=== PATIENT | male | born 1995 | race Caucasian/White ===

== ENCOUNTER 2016-10-12 04:01 | Emergency (ER) | payer OTHER ==
[~2016-10-12] VITALS: Ht 167.6 cm; Wt 54.4 kg
[2016-10-12 04:05] VITALS: BP 125/76; PULSE 84; RESP 15; TEMP 98.8; O2SAT 98
[2016-10-12 05:00] VITALS: BP 120/76; PULSE 82; RESP 16; TEMP 98.8; O2SAT 98
--- NOTE | 2016-10-12 05:00 | NUR ---
Patient given written and verbal discharge instructions and verbalizes understanding. ER MD Linares discussed with patient the results and treatment provided. Patient in stable condition. ID arm band removed. No rx given. Patient educated on pain management and to follow up with PMD. Pain Scale 0/10 Opportunity for questions provided and answered. Pt accompanied by 2 CHPs
== END 2016-10-12 05:00 ==
LOC: SED 04:01
DX: Z02.89 Encounter for other administrative examinations (principal); S81.812A Laceration without foreign body, left lower leg, initial encounter; V43.52XA Car driver injured in collision with other type car in traffic accident, initial encounter; Y93.89 Activity, other specified; Y92.89 Other specified places as the place of occurrence of the external cause; Y99.8 Other external cause status
CPT/HCPCS: 99283